=== PATIENT | male | born 1960 | race African-American/Black ===

== ENCOUNTER 2016-09-15 21:44 | Inpatient (IN) ==
--- NOTE | 2016-09-15 21:55 | Emergency Department Note ---
Disposition Clinical Impression: Hyperglycemia, HARISH (acute kidney injury), Acute electrocardiogram changes Disposition: Admitted As Inpatient Condition: Fair Time of Disposition: 23:57 General Adult HPI - General Chief complaint: ED General Medical Stated complaint: High Blood Sugar Time Seen by Provider: 09/15/16 21:50 Source: patient, EMS Mode of arrival: EMS Limitations: no limitations Nursing Notes Reviewed: Yes Vital Signs Reviewed: Yes - History of Present Illness HPI Narrative: 55-year-old male with history of diabetes, hypertension, presents from the [facility] urgent care, Dr. Armijo the patient due to concerns for ischemic changes in his EKG including inverted T waves and ST depressions in his lateral and inferior leads, his O history of CAD, patient denies any chest pain abdominal pain or back pain, he does state that he had high blood sugars at home with his meter reading "high" is found to be in the 400s at the [facility], and they gave him 5 units of regular insulin prior to transport. His initial troponin was 0.21, with upper limit of normal at the [facility] greater than 0.04, again still denies chest pain, no previous or recent heart evaluations, no previous surgeries, denies nausea vomiting diaphoresis, shortness of breath, dysuria hematuria. States he has been poorly controlled with his blood sugar in the past. Improves with: nothing Worsens with: nothing Treatments Prior to Arrival: none (Insulin 5Units) - Related Data Allergies Allergy/AdvReac Type Severity Reaction Status Date / Time lisinopril Allergy Anaphylaxis Verified 09/15/16 22:01 aspirin AdvReac Difficulty Verified 09/15/16 22:01 Breathing All systems ED: reviewed and negative except as stated. Constitutional: Denies: fever, chills Cardiovascular: Denies: chest pain, palpitations Respiratory: Denies: cough, dyspnea Gastrointestinal: Reports: nausea. Denies: abdominal pain, vomiting Genitourinary: Denies: urgency, dysuria Musculoskeletal: Denies: back pain Integumentary: Denies: rash, abrasion Neurological: Denies: headache, weakness Psychiatric: Denies: anxiety Past Medical History - Past Medical History Attestation: Yes The following information was validated with the patient. Source: patient Medical history: Reports: diabetes Physical Exam - General Limitations: no limitations General appearance: alert, in no apparent distress - Head Head exam: atraumatic - Eye Eye exam: Present: normal appearance, PERRL - ENT ENT exam: normal exam, normal oropharynx - Neck Neck exam: Present: normal inspection, full ROM - Chest Chest inspection: Present: normal inspection, symmetric chest wall rise. Absent : tenderness - Respiratory Respiratory exam: Present: normal lung sounds bilaterally. Absent: respiratory distress - Cardiovascular Cardiovascular exam: Present: regular rate, normal rhythm - Abdominal Exam Abdominal exam: Present: soft, Non-Tender. Absent: tenderness, distention - Extremities Exam Extremities exam: Present: normal inspection, full ROM - Back Exam Back exam: Present: normal inspection, full ROM - Neurological Exam Neurological exam: Present: alert, oriented X3, CN II-XII intact, normal gait - Psychiatric Psychiatric exam: Present: normal affect, normal mood Course Course Narrative: 55-year-old male with diabetes of her glycemia and EKG changes, sent from the [facility] urgent care due to concerns for silent FL given EKG changes, patient has evidence of T-wave inversions in inferior leads [address] depressions in V5 V6 on repeat EKG today at 2148, his ST depressions in V5 and V6 lateral leads is improved from nonelevated, patient admitted to the hospitalist service - Reevaluation(s) Reevaluation #1: VBG, beta hydroxybutyric acid is within normal limits, urinalysis shows glucose and urine, no evidence of DKA, repeat EKG unremarkable, somewhat improved from previous EKG saws no ischemic discomfort no chest pain, plan admit to medicine service for trending troponins Dr. Foster accept Time: 23:56 Vital Signs Temperature 97.1 F L 09/15/16 21:52 Pulse Rate 65 09/15/16 21:52 Respiratory Rate 16 09/15/16 21:52 Blood Pressure 142/104 09/15/16 21:52 O2 Sat by Pulse Oximetry 91 09/15/16 21:52 Temperature 97.1 F L 09/15/16 21:52 Pulse Rate 75 09/16/16 00:14 Respiratory Rate 18 09/16/16 00:14 Blood Pressure 162/108 09/16/16 00:14 O2 Sat by Pulse Oximetry 96 09/16/16 00:14 Oxygen Delivery Oxygen Delivery Room Air Medical Decision Making - Medical Records Medical records reviewed: Yes I reviewed the patient's medical records. - Lab Data Lab results reviewed: Yes I reviewed the patient's lab results. Lab results narrative: [facility], white blood cell count 16.3 hemoglobin 17.5 sodium 134 potassium 4.7 chloride 97 CO2 26 glucose 446 BUN 36 Trop 0.021 creatinine 1.62 Result diagrams: 09/15/16 22:02 Lab Results 09/15/16 09/15/16 09/15/16 Range/Units 21:54 22:02 22:02 VBG pH 7.45 H (7.32-7.42) pH Units VBG pCO2 42 (41-51) mmHg VBG pO2 59 H (25-40) mmHg VBG HCO3 29.2 H (21-27) mEq/L Sodium 135 L (136-145) mEq/L Potassium 4.9 H (3.5-4.5) mEq/L Chloride 99 (98-109) mEq/L Carbon Dioxide 26 (19-29) mEq/L BUN 36 H (8-26) mg/dL Creatinine 1.60 H (0.72-1.25) mg/dL Est GFR ( Amer) 54 L (> 60) Est GFR (Non-Af Amer) 45 L (> 60) BUN/Creatinine Ratio 23 (6-26) Glucose 417 H (70-99) mg/dL POC Glucose 350 H (58-89) Calculated Osmolality 306 H (280-300) Calcium 10.5 (8.6-10.8) mg/dL Beta-Hydroxybutyric Acd (0.02-0.27) mmol/L Urine Color (Yellow) Urine Clarity (Clear) Urine pH (5.0-8.0) pH Units Ur Specific Hope (1.010-1.025) Urine Protein (Neg-Trace) mg/dL Urine Glucose (UA) (Normal) mg/dL Urine Ketones (Negative) mg/dL Urine Blood (Negative) Urine Nitrite (Negative) Urine Bilirubin (Negative) Urine Urobilinogen (Normal) mg/dL Ur Leukocyte Esterase (Negative) Ur Culture Indicated? (NO) 09/15/16 09/15/16 09/15/16 Range/Units 22:02 23:02 23:35 VBG pH (7.32-7.42) pH Units VBG pCO2 (41-51) mmHg VBG pO2 (25-40) mmHg VBG HCO3 (21-27) mEq/L Sodium (136-145) mEq/L Potassium (3.5-4.5) mEq/L Chloride (98-109) mEq/L Carbon Dioxide (19-29) mEq/L BUN (8-26) mg/dL Creatinine (0.72-1.25) mg/dL Est GFR ( Amer) (> 60) Est GFR (Non-Af Amer) (> 60) BUN/Creatinine Ratio (6-26) Glucose (70-99) mg/dL POC Glucose 341 H (58-89) Calculated Osmolality (280-300) Calcium (8.6-10.8) mg/dL Beta-Hydroxybutyric Acd 0.27 (0.02-0.27) mmol/L Urine Color Yellow (Yellow) Urine Clarity Clear (Clear) Urine pH 6.0 (5.0-8.0) pH Units Ur Specific Hope > 1.030 H (1.010-1.025) Urine Protein Negative (Neg-Trace) mg/dL Urine Glucose (UA) >=1000 H (Normal) mg/dL Urine Ketones Negative (Negative) mg/dL Urine Blood Negative (Negative) Urine Nitrite Negative (Negative) Urine Bilirubin Negative (Negative) Urine Urobilinogen Normal (Normal) mg/dL Ur Leukocyte Esterase Negative (Negative) Ur Culture Indicated? NO (NO) Attestation Statement - Attestation Attestation: I, Gordon Pagan MD, personally evaluated this patient and discussed their management with the resident physician. I reviewed the resident's note and agree with the documented findings, medical decision making, and plan of care. 55-year-old male with history of diabetes transferred here from the local [facility] for further evaluation. Patient presented there complaining of elevated blood sugars. He was in the hospital at the [facility] last week for the same problem. On evaluation he was found to have some new EKG changes. He denies any chest pain or shortness of breath. On examination patient is a well-developed well-nourished well-appearing male in no acute distress. He is alert and oriented 3. There is no diaphoresis. Breath sounds clear and equal bilaterally. Heart regular rate and rhythm. Abdomen soft and nontender with normal bowel sounds. Labs reviewed. Troponin normal. EKG shows some new inferior and lateral T- wave inversions. The hospitalist, Dr. Foster, was consulted and accepted admission of the patient.
[2016-09-15] MEDS ORDERED: Insulin Human Regular 10 UNIT in 0.9 % Sodium Chloride 10 ML IV ONE (21:56)
[2016-09-15 22:18] LABS: VBG HCO3 29.2 mEq/L (21-27); VBG PH 7.45 pH Units (7.32-7.42)
[2016-09-15 22:30] LABS: Calcium 10.5 mg/dL (8.6-10.8); Potassium 4.9 mEq/L (3.5-4.5)
[2016-09-15 23:09] LABS: Bilirubin,Urine Negative (Negative); Blood,Urine Negative (Negative); Clarity,Urine Clear (Clear); Color,Urine Yellow (Yellow); Glucose,Urine (UA) >=1000 mg/dL (Normal); Ketones,Urine Negative (Negative); Leukocyte Esterase,Urine Negative (Negative); Nitrite,Urine Negative (Negative); Protein,Urine Negative (Neg-Trace); Specific Gravity,Urine > 1.030 (1.010-1.025); Urobilinogen,Urine Normal (Normal)
[2016-09-15] MEDS ORDERED: Insulin Regular, Human 100 UNIT/ML IV ONE (23:53)
[2016-09-16] MEDS ORDERED: Acetaminophen 325 MG TABLET PO PRN (01:01)
[2016-09-16] MEDS ORDERED: Ondansetron 4 MG/2 ML VIAL IVP PRN (01:01)
[2016-09-16] MEDS ORDERED: Naloxone 0.4 MG/ML INJ IVP PRN (01:01)
[2016-09-16 02:17] LABS: Basophils # 0.1 K/mcL (0.0-0.2); Basophils % 0.3 %; Eosinophils % 0.1 %; Hemoglobin 17.6 g/dL (12.9-16.9); Immature Granulocytes % 1.2 % (0-4); Lymphocytes # 3.6 K/mcL (0.6-4.6); Lymphocytes % 16.9 %; Mean Corpuscular HGB Conc 34.5 g/dL (31.6-35.5); Mean Corpuscular Hemoglobin 31.2 pg (28.0-33.3); Mean Corpuscular Volume 90.3 fL (83.0-100.0); Mean Platelet Volume 9.9 fL (9.4-12.4); Monocytes # 1.2 K/mcL (0.0-1.3); Monocytes % 5.5 %; Neutrophils # 16.2 K/mcL (1.6-8.9); Platelet Count 285 K/mcL (140-400); Red Blood Count 5.65 M/mcL (4.19-5.50); Red Cell Distribution Width 13.2 % (11.5-14.5)
[2016-09-16 02:36] LABS: Albumin 3.4 g/dL (3.5-5.0); Albumin/Globulin Ratio 0.8 (1.1-2.2); Bilirubin,Total 0.4 mg/dL (0.2-1.2); Calcium 10.3 mg/dL (8.6-10.8); Globulin 4.3 g/dL (2.4-3.5); Total Protein 7.7 g/dL (6.0-8.3)
[2016-09-16] MEDS ORDERED: *HR* Enoxaparin 100 MG/ML SYRINGE SQ STA (02:37)
[2016-09-16] MEDS ORDERED: Nitroglycerin 0.4 MG TAB.SUBL SL PRN (02:38)
--- NOTE | 2016-09-16 02:49 | Internal Med History&Physical ---
Date of Encounter: 09/16/16 Time of Encounter: 02:47 Assessment and Plan (1) Unstable angina Current visit: Yes Status: Acute Pt. has left arm stiffness and hyperglycemia over the past 2 weeks EKG with significant changes suggestive of inferolateral ischemia Pt. has risk factors of age, HTN, tobacco abuse and diabetes mellitus Benign exam Troponins negative. Admit to inpatient status. High risk due to risk of lethal arrhythmias. Expected to be admitted for at least 2 midnights. Expected DC dispo is home Pt. states he was told by [facility] pharmacist to list ASA & Lisinopril as allergies after he developed angioedema Will hold off on ASA Start plavix, statin Hold BB due to HR in 60s ECHO. Cardiology consult Cycle cardiac markers NTG PRN (2) HARISH (acute kidney injury) Current visit: Yes Status: Acute Check US kidney IV fluids Avoid nephrotoxic meds and hypotension (3) Diabetes mellitus Current visit: Yes Status: Chronic Complicated by hyperglycemia and CKD Will resume home insulin and increase the dose SSI Hold metformin due to HARISH & CKD-3 Hold PO meds Renal function slightly worse Will obtain PTH, phosphorous and Vit. 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 Hooks is a 55 year old male with history of diabetes mellitus type 2 and tobacco abuse who presented to the [place] urgent care due to high blood sugar. Patient states that the problem started 1 week ago when his blood sugar was as high as 1500. At that time, he was admitted to the [facility] for about 4-5 days for high blood sugar. At the time of discharge, he states that his blood sugar was still high in the 200s. At home, he states that he continued to have high blood sugar into the 400s to 500s. 2 nights ago, his blood sugar was 118 and the telemetry nurse called him to present to the emergency department. However , he decided to stay home as it was late in the night. Yesterday, his blood sugar was in the 400s. Hence, he presented to the emergency department. He reports that he had some stiffness in his left arm which she reported to the urgent care. An EKG was obtained which revealed T wave inversions in inferolateral leads and hence he has been transferred to [facility] for possible unstable angina/non-STEMI. He denies any shortness of breath, palpitations, feeling lightheaded or dizzy. He denies any cough, wheezing, fever or chills. He denies any nausea, diaphoresis, vomiting, abdominal pain, diarrhea or constipation. He denies any recent weight changes or changes in his appetite. He denies any swelling in his legs. Past Med Surg Social Fam HX - Past Medical History Attestation: Yes The following information was validated with the patient. Source: patient, old records reviewed Medical history: diabetes, hypertension Psychiatric history: no psych history - Past Surgical History Surgical History: no surgical history - Social History Smoking Status: Current every day smoker Smokeless Tobacco Status: No Alcohol use: none Drug use: none Current living situation: Home Activity Level: Independent ambulation Recent Out of Country Travel Within the Last 8 Weeks: No Exposure or Possible Exposure to Illness During Travel: No - Additional Family History Additional family history: Reviewed; not pertinent Internal Medicine - H&P: Meds Allergies lisinopril Allergy (Verified 09/15/16 22:01) Anaphylaxis aspirin Adverse Reaction (Verified 09/15/16 22:01) Difficulty Breathing All Systems PM: A 10-system review of systems was performed and is negative for pertinent findings except as documented above in the HPI. Review of systems: 10 systems have been reviewed and are negative except as mentioned in the history of present illness - Constitutional Vitals: Temp Pulse Resp BP Pulse Ox 98.4 F 67 20 129/88 91 09/16/16 02:16 09/16/16 02:16 09/16/16 02:16 09/16/16 02:16 09/16/16 02:16 Exam: Gen.: Lying in bed. No acute distress. Eyes: Pupils equal, round and reactive to light. Extraocular muscles intact. ENT: Moist mucous membranes. No oropharyngeal erythema or discharge. Chest: Clear to auscultation bilaterally. No adventitious sounds present. CVS: First and second heart sounds present. No murmurs, rubs or gallops. Abdomen: Soft, nontender, nondistended. Bowel sounds present. No hepatosplenomegaly. Skin: No decubitus ulcers appreciated. MANAGER ANIMAL: No focal neuro deficits present. Psychiatric: Alert, awake and oriented to time, place and person. Lymphatic system: No lymphadenopathy appreciated Internal Med - H&P Results - Labs CBC & Chem 7: 09/16/16 01:56 09/16/16 01:56 Labs: Short CBC 09/16/16 Range/Units 01:56 WBC 21.3 H (4.3-11.1) K/mcL Hgb 17.6 H (12.9-16.9) g/dL Hct 51.0 H (37.5-50.1) % Plt Count 285 (140-400) K/mcL Neutrophils # 16.2 H (1.6-8.9) K/mcL BMP 09/16/16 01:56 Sodium 134 L Potassium 5.0 H Chloride 97 L Carbon Dioxide 23 BUN 36 H Creatinine 1.83 H Glucose 440 H Calcium 10.3 Cardiac Enzymes 09/16/16 Range/Units 01:56 Troponin I 0.02 (0-0.03) ng/mL Liver Function 09/16/16 Range/Units 01:56 Total Bilirubin 0.4 (0.2-1.2) mg/dL AST 14 (5-34) Units/L ALT 34 (0-55) Units/L Alkaline Phosphatase 76 (38-126) Units/L Albumin 3.4 L (3.5-5.0) g/dL - EKG Data -: EKG Interpreted by Myself EKG shows normal: sinus rhythm, ST-T waves (T-inversions in leads II, III, aVF, V5-6) - EKG Data Prior EKG available for review: yes When compared to previous EKG: there are significant changes Interpretation IM: suggestive of ischemia
[2016-09-16] MEDS ORDERED: D5% in Water 1,000 ML IVC PRN (03:04)
[2016-09-16] MEDS ORDERED: Dextrose Gel 15 GM PO PRN ×2 (03:04)
[2016-09-16] MEDS ORDERED: *HR* Dextrose 50 % in Water (Syg) 50 ML SYRINGE IVP PRN (03:04)
[2016-09-16] MEDS ORDERED: Insulin LISPRO 300 UNITS/3 ML VIAL SQ ONE (03:24)
[2016-09-16] MEDS: Insulin LISPRO 300 UNITS/3 ML VIAL SQ SCH ×5 (03:36→21:44)
[2016-09-16] MEDS: 0.9 % Sodium Chloride 1,000 ML IVC SCH ×2 (03:37→20:25)
[2016-09-16] MEDS ORDERED: *HR* Heparin 5,000 UNIT/ML VIAL SQ SCH (08:00)
[2016-09-16 08:15] LABS: Hemoglobin A1C 12.8 %
[2016-09-16] MEDS ORDERED: Insulin DETEMIR 100 UNIT/ML X5UNITS SQ SCH (09:00)
--- NOTE | 2016-09-16 11:12 | Cardiology Consult Note ---
<Alcides Becker - Last Filed: 09/16/16 11:41> Date of Encounter: 09/16/16 Time of Encounter: 09:15 Assessment and Plan (1) Diabetes mellitus Current Visit: Yes Status: Chronic Per Cardiology: A1C noted to be in 12's. Recent admissions for hyperglycemia. Management per primary service. 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 Reports had some lower left arm "stiffness at rest". ECG with flipped T waves, however comparable to previous ECGs. Suspect LVH. Trops negative x 1 at [facility] and negative x 2 here. Echo pending. Patient has been experiencing increased dyspnea on exertion and fatigue. No known history of CAD. Risk factors include diabetes mellitus, hypertension, hyperlipidemia, positive family history, and nicotine abuse. Patient apparently Plavix loaded by primary service-- we'll discontinue Plavix for now. Family discussion with patient and he is agreeable to proceed with exercise nuclear stress test, we'll complete tomorrow since patient had breakfast this morning. Discussed and reviewed with Dr. Ibrahim whom agrees with plan. [facility] medical records reviewed in patient with allergy to lisinopril-- reports was taking for years but eventually developed tongue swelling and was discontinued. No allergy listed to aspirin, however listed on our current medical records. Patient reports taking for years with no known adverse reactions, however reports he has not been taking lately. (3) HARISH (acute kidney injury) Current Visit: Yes Status: Acute Per Cardiology: Patient denies any awareness to CKD. Management per primary service. Avoid nephrotoxics. Would need to monitor closely if would warrant LHC. [facility] medical records reviewed and does appear patient does have renal insufficiency. (4) Tobacco abuse Current Visit: Yes Status: Chronic Per Cardiology: Smokes 1ppd for 40+ years, smoking cessation encouraged. Discussion w patient/family: The assessment and plan as outlined above was discussed with the patient who expressed understanding and agreement. All questions were answered. Thank you for involving us in the care of your patient. Please call with any questions. History of Present Illness Consult date: 09/16/16 Requesting physician: Rolly Borja Consult reason: R/O USA?, Abnormal ECG Chief complaint: High blood sugars History of present illness: Mr. Hooks is a 55 year old male with relevant past medical history of diabetes mellitus type 2, hypertension, hyperlipidemia, nicotine abuse of smoking one pack per day for 40+ years. Denies any known history of CAD and last stress test about 6 years ago. Reports family history with brother with stenting. Cardiology consult for possible unstable angina and ECG changes. Patient reports hospitalized at [facility] for about one week a few days ago for elevated blood sugars in the 1500s. He reports he presented back to the [facility] for elevated blood sugars in the 500s. He denies any chest pain. He reports he developed left arm "stiffness", currently resolved. He does report over the past few months increased dyspnea on exertion and fatigue. He denies any dizziness, syncope, falls. Denies any active bleeding or blood loss. He denies any history of CVA or TIA. He denies any known history of CKD. He denies any recent fever, chills, nausea, vomiting, diarrhea, cough. Past Med Surg Social Fam HX - Past Medical History Attestation: Yes The following information was validated with the patient. Source: patient, old records reviewed Medical history: diabetes, hypertension Psychiatric history: no psych history - Past Surgical History Surgical History: no surgical history - Social History Smoking Status: Current every day smoker Smokeless Tobacco Status: No Alcohol use: none Drug use: none Medications and Allergies Albuterol Sulfate [Albuterol Inhaler] 1 puff IH QID PRN 09/16/16 [History] EPINEPHrine [Epipen] 0.3 ml IM AD 09/16/16 [History] Famotidine [Pepcid] 20 mg PO DAILY 09/16/16 [History] Gabapentin [Neurontin] 300 mg PO TID 09/16/16 [History] Insulin Glargine [Lantus] 32 unit SQ HS 09/16/16 [History] Metformin HCl [Glucophage] 1,000 mg PO BIDWM 09/16/16 [History] Methocarbamol [Robaxin] 500 mg PO TID 09/16/16 [History] Multivitamin [Multivitamins] 1 each PO DAILY 09/16/16 [History] Omeprazole 20 mg PO DAILY 09/16/16 [History] Pravastatin Sodium [Pravachol] 80 mg PO DAILY 09/16/16 [History] Saxagliptin HCl [Onglyza] 5 mg PO DAILY 09/16/16 [History] Tramadol HCl [Ultram] 50 mg PO QID PRN 09/16/16 [History] Triamterene/HCTZ 37.5/25mg [Dyazide] 1 each PO DAILY 09/16/16 [History] glipiZIDE [Glipizide] 15 mg PO BID 09/16/16 [History] hydrALAZINE [HydrALAZINE] 10 mg PO QID 09/16/16 [History] Allergies lisinopril Allergy (Verified 09/16/16 09:51) Anaphylaxis PATIENT STATES THIS CAUSES SWELLING. aspirin Adverse Reaction (Verified 09/16/16 09:41) SEE COMMENT PATIENT SAYS DR SAID NOT TO TAKE ASPIRIN FOR RIGHT NOW BECAUSE IT COULD BE A FACTOR CONTRIBUTING TO HIS SWELLING. All Systems Review: A 10-system review of systems was performed and is negative for pertinent findings except as documented above in the HPI. - Constitutional Constitutional: fatigue - Cardiovascular Cardiovascular: as per HPI, dyspnea on exertion - Musculoskeletal Musculoskeletal: other (L arm stiffness) Physical Examination Vital Signs, Last 4 Hours Temp Pulse Resp BP Pulse Ox 09/16/16 08:03 98.0 F 55 14 120/83 98 General: Conversant, No Apparent Distress HEENT: Atraumatic, Normocephaly, Mucus Membranes Moist Neck: No JVD, Normal carotid pulses Cardiac: Reg Rate and Rhythm, Normal S1 and S2, No Murmur Lungs: Normal Breath Sounds, No Wheeze, Rales, Rhonchi Neuro: Alert and responsive, No focal deficits noted Abdomen: Soft, Non-Tender Skin: No rashes noted on visualized skin Musculoskeletal: No Chest Wall Tenderness Extremities: No Clubbing, No Cyanosis, No Edema, Normal Pulses Results 09/16/16 01:56 09/16/16 01:56 Lab Results Laboratory Tests 09/15/16 09/16/16 09/16/16 22:02 01:56 01:56 WBC 21.3 H Creatinine 1.60 H Est GFR (Non-Af Amer) 45 L Hemoglobin A1c AST ALT Troponin I 0.02 09/16/16 09/16/16 09/16/16 01:56 07:03 07:03 WBC Creatinine 1.83 H Est GFR (Non-Af Amer) 38 L Hemoglobin A1c 12.8 H AST 14 ALT 34 Troponin I 0.01 Active Medications Acetaminophen (Tylenol) 650 mg PO Q6HR PRN PRN Reason: Mild Pain (1-3) Stop: 03/18/17 01:02 Atorvastatin Calcium (Lipitor) 80 mg PO HS [facility] Stop: 03/18/17 02:46 Last Admin: 09/16/16 03:29 Dose: 80 mg Dextrose/Water (Dextrose 50% (Syg)) 25 ml IVP AD PRN PRN Reason: Hypoglycemia Stop: 03/18/17 03:05 Glucagon (Glucagen) 1 mg IM ONCE PRN PRN Reason: Hypoglycemia Stop: 03/18/17 03:05 Glucose (Gluctose) 15 gm PO ONCE PRN PRN Reason: Hypoglycemia Stop: 03/18/17 03:05 Glucose (Gluctose) 30 gm PO ONCE PRN PRN Reason: Hypoglycemia Stop: 03/18/17 03:05 Sodium Chloride (0.9 % Sodium Chloride) 1,000 mls @ 80 mls/hr IVC .[id number] [facility] Stop: 03/18/17 03:01 Last Admin: 09/16/16 03:37 Dose: 80 mls/hr Dextrose (Dextrose 5%) 1,000 mls @ 100 mls/hr IVC .Q10H PRN PRN Reason: HYPOGLYCEMIA Stop: 03/18/17 03:05 Insulin Detemir (Levemir) 22 unit 0.25 unit/kg (22 unit) SQ BID [facility] Stop: 03/18/17 09:01 Last Admin: 09/16/16 08:56 Dose: 22 unit Insulin Human Lispro (Humalog) 0 units SQ HS [facility] PRN Reason: Protocol Stop: 03/18/17 21:01 Last Admin: 09/16/16 03:36 Dose: 9 units Insulin Human Lispro (Humalog) 0 units SQ TIDAC [facility] PRN Reason: Protocol Stop: 03/18/17 07:31 Last Admin: 09/16/16 08:55 Dose: 12 units Naloxone HCl (Narcan) 0.4 mg IVP Q2MIN PRN PRN Reason: Opioid Reversal Stop: 03/18/17 01:02 Nitroglycerin (Nitroglycerin) 0.4 mg SL Q5MIN PRN PRN Reason: Chest Pain Stop: 03/18/17 02:39 Ondansetron HCl (Zofran) 4 mg IVP Q8HR PRN PRN Reason: Nausea And Vomiting Stop: 03/18/17 01:02 - Imaging and Cardiology Stress Test: pending Echo: pending - EKG Interpretation EKG results cardiology: personally reviewed (flipped T waves, comparable to previous baseline ECGs), normal ECG, sinus rhythm Consult Discharge Plan - Plan [facility]errals: [facility]Primary Care Provider[facility] - <Emily Ibrahim - Last Filed: 09/16/16 13:16> Date of Encounter: 09/16/16 Assessment and Plan Discussion w patient/family: The assessment and plan as outlined above was discussed with the patient and/or family members who expressed understanding and agreement. All questions were answered. Thank you for involving us in the care of your patient. Please call with any questions. History of Present Illness History of present illness: Mr. Hooks is a 55 year old male All Systems Review: A 10-system review of systems was performed and is negative for pertinent findings except as documented above in the HPI. Physical Examination Vital Signs, Last 4 Hours Temp Pulse Resp BP Pulse Ox 09/16/16 12:34 98.8 F 63 16 138/82 97 Results 09/16/16 01:56 09/16/16 01:56 Lab Results 09/16/16 09/16/16 09/16/16 01:56 01:56 01:56 WBC 21.3 H Hgb 17.6 H Hct 51.0 H Plt Count 285 Sodium 134 L Potassium 5.0 H Chloride 97 L Carbon Dioxide 23 BUN 36 H Creatinine 1.83 H Glucose 440 H Calcium 10.3 Total Bilirubin 0.4 AST 14 ALT 34 Alkaline Phosphatase 76 Troponin I 0.02 09/16/16 07:03 WBC Hgb Hct Plt Count Sodium Potassium Chloride Carbon Dioxide BUN Creatinine Glucose Calcium Total Bilirubin AST ALT Alkaline Phosphatase Troponin I 0.01 - Attending Attestation I examined this patient and my medical decision-making was reviewed with the SECURITY CLERK/PA/Advanced Practice Nurse/Resident Physician. I agree with the documented findings, disposition and treatment plan. Mr. Hooks presents with ECG abnormalities which are comparable to prior ECGs. Troponins have been negative and patient denies chest pain, admits to arm stiffness. He has CV risk factors and has agreed to undergoing ischemic evaluation with stress testing. Received plavix load - agree with discontinuing. ASA allergy listed but patient reports taking it for a long time without adverse events, although not recently. Further recommendations in this regard following results of stress testing. Smoking cessation encouraged.
--- NOTE | 2016-09-16 15:37 | Electrocardiograph Report ---
[place] [id number] Test Date: 2016-09-15 Pat Name: Yvan Hooks Department: 105 Room: 2A71 Gender: M School Age Program Associate: VERÓNICA : 1960 Requested By: Miguel Dobbs Order Number: [id number] Reading MD: Khloe Barrera Measurements Intervals [place] Rate: 58 P: 53 AL: 160 QRS: -17 QRSD: 106 T: -53 QT: 388 QTc: 385 Interpretive Statements SINUS BRADYCARDIA VOLTAGE CRITERIA FOR LVH [MEETS CRITERIA IN ONE OF: R(aVL), S(V1), R(V5), R(V5/V6) +S(V1)] MODERATE T-WAVE ABNORMALITY, CONSIDER INFERIOR ISCHEMIA [-0.1+ mV T WAVE IN II/aVF] Electronically Signed On 09-16-2016 15:36:14 EDT by Khloe Barrera
[2016-09-16] MEDS: Insulin DETEMIR 100 UNIT/ML X5UNITS SQ SCH (21:43)
[2016-09-16] MEDS ORDERED: Simethicone 80 MG TAB.CHEW PO ONE (21:49)
--- NOTE | 2016-09-17 07:56 | Cardiology Progress Note ---
Date of Encounter: 09/17/16 Time of Encounter: 07:55 Assessment and Plan (1) Diabetes mellitus Current Visit: Yes Status: Chronic Per Cardiology: A1C noted to be in 12's. Recent admissions for hyperglycemia. Management per primary service. 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 Reports had some lower left arm "stiffness at rest". ECG with flipped T waves, however comparable to previous ECGs. Suspect LVH. Trops negative x 1 at [place] and negative x 3 here. Echo showed EF preserved 60%, mild diastolic dysfunction, normal RV function, NSWMA, no pulmonary hypertension, no significant valvular dysfunction. Patient has been experiencing increased dyspnea on exertion and fatigue. No known history of CAD. Risk factors include diabetes mellitus, hypertension, hyperlipidemia, positive family history, and nicotine abuse. Stress test results pending. On statin. [place] medical records reviewed in patient with allergy to lisinopril-- reports was taking for years but eventually developed tongue swelling and was discontinued. No allergy listed to aspirin, however listed on our current medical records. Patient reports taking for years with no known adverse reactions, however reports he has not been taking lately. (3) HARISH (acute kidney injury) Current Visit: Yes Status: Acute Per Cardiology: Patient denies any awareness to CKD. Management per primary service. Avoid nephrotoxics. Would need to monitor closely if would warrant LHC. [place] medical records reviewed and does appear patient does have renal insufficiency. Renal ultrasound showed no hydronephrosis. (4) Tobacco abuse Current Visit: Yes Status: Chronic Per Cardiology: Smokes 1ppd for 40+ years, smoking cessation encouraged. (5) Abdominal pain in male Current Visit: Yes Status: Acute Per Cardiology: Complaint of acute right abdominal pain this morning. Further management per primary service. Consider abdominal CT if clinically warranted. Discussion w patient/family: The assessment and plan as outlined above was discussed with the patient who expressed understanding and agreement. All questions were answered. Thank you for involving us in the care of your patient. Please call with any questions. Subjective Principal diagnosis: ANTONIO Interval history: Patient seen today during stress test. Denies any chest pain, shortness of breath, palpitations. Reports right upper and lower quadrant abdominal pain and cramping. Reports positive bowel movement yesterday and today. Denies any diarrhea. Symptoms worsened with low level Lexiscan stress test. She had no chest pain or arrhythmias or significant ECG changes during stress test. Objective Vital Signs, Last 4 Hours Temp Pulse Resp BP Pulse Ox 09/17/16 07:03 97.1 F L 47 16 142/88 95 General: Conversant Cardiac: Reg Rate and Rhythm, Normal S1 and S2, No Murmur Lungs: Normal Breath Sounds, No Wheeze, Rales, Rhonchi Neuro: Alert and responsive, No focal deficits noted Abdomen: Other (Right upper and lower abdominal tenderness and discomfort) Extremities: No Edema Results 09/16/16 01:56 09/16/16 01:56 Lab Results Laboratory Tests 09/16/16 09/16/16 09/16/16 01:56 07:03 13:45 Troponin I 0.02 0.01 0.01 Impressions Retroperitoneum Ultrasound 09/16/16 16:00 IMPRESSION: No hydronephrosis noted Focal hypoechoic area in midportion of left kidney, incompletely characterized. Parapelvic cyst is favored. However, as it is not clearly a simple cyst, consider cross-sectional imaging when the patient is able D/ / Jean Lei MD / Jean Lei MD Interpreting Provider: Jean Lei MD Active Medications Acetaminophen (Tylenol) 650 mg PO Q6HR PRN PRN Reason: Mild Pain (1-3) Stop: 03/18/17 01:02 Atorvastatin Calcium (Lipitor) 80 mg PO HS [facility] Stop: 03/18/17 02:46 Last Admin: 09/16/16 20:25 Dose: 80 mg Dextrose/Water (Dextrose 50% (Syg)) 25 ml IVP AD PRN PRN Reason: Hypoglycemia Stop: 03/18/17 03:05 Glucagon (Glucagen) 1 mg IM ONCE PRN PRN Reason: Hypoglycemia Stop: 03/18/17 03:05 Glucose (Gluctose) 15 gm PO ONCE PRN PRN Reason: Hypoglycemia Stop: 03/18/17 03:05 Glucose (Gluctose) 30 gm PO ONCE PRN PRN Reason: Hypoglycemia Stop: 03/18/17 03:05 Sodium Chloride (0.9 % Sodium Chloride) 1,000 mls @ 80 mls/hr IVC .[id number] [facility] Stop: 03/18/17 03:01 Last Admin: 09/16/16 20:25 Dose: 80 mls/hr Dextrose (Dextrose 5%) 1,000 mls @ 100 mls/hr IVC .Q10H PRN PRN Reason: HYPOGLYCEMIA Stop: 03/18/17 03:05 Insulin Detemir (Levemir) 30 unit SQ BID [facility] Stop: 03/18/17 21:01 Last Admin: 09/16/16 21:43 Dose: 30 unit Insulin Human Lispro (Humalog) 0 units SQ HS [facility] PRN Reason: Protocol Stop: 03/18/17 21:01 Last Admin: 09/16/16 21:44 Dose: 8 units Insulin Human Lispro (Humalog) 0 units SQ TIDAC [facility] PRN Reason: Protocol Stop: 03/18/17 07:31 Last Admin: 09/16/16 17:45 Dose: 14 units Naloxone HCl (Narcan) 0.4 mg IVP Q2MIN PRN PRN Reason: Opioid Reversal Stop: 03/18/17 01:02 Nitroglycerin (Nitroglycerin) 0.4 mg SL Q5MIN PRN PRN Reason: Chest Pain Stop: 03/18/17 02:39 Ondansetron HCl (Zofran) 4 mg IVP Q8HR PRN PRN Reason: Nausea And Vomiting Stop: 03/18/17 01:02 - Imaging and Cardiology Stress Test: pending Echo: report reviewed - EKG Interpretation EKG results cardiology: other (Sinus bradycardia on telemetry with flipped T waves) Consult Discharge Plan - Plan [facility]errals: [facility] [Primary Care Provider] -
[2016-09-17] MEDS ORDERED: Regadenoson 0.4 MG/5 ML SYRINGE IVP ONE (08:25)
[2016-09-17] MEDS: Insulin DETEMIR 100 UNIT/ML X5UNITS SQ SCH (10:36)
--- NOTE | 2016-09-17 11:06 | Nuclear Medicine Stress Report ---
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 Gated EF = 65%. History: Hypertension Diabetes Hypercholesteremia History of Smoking Stress Test Summary: Stress Test Type: Low level pharmacologic Regadenoson 0.4mg/5ml given IV Baseline Information: Initial Heart Rate: 52 Blood Pressure: 118/62 Stress Information: Stress Time: 3 min 47 sec Test Terminated Due to (primary): As per protocol Maximum Blood Pressure: 98/50 Maximum Heart Rate: 85 Percent Maximum Heart Rate Achieved: 52 Double Product: 8330 METS Reached: 2.1 Symptoms: ABDOMINAL PAIN, No chest symptoms Nuclear Summary: SPECT myocardial perfusion imaging using Tc99m Sestamibi given intravenously was performed at rest and following cardiac stress testing. The resting images were obtained following initial dose of 10.5 mCi. Following stress an additional dose of 35.7 mCi was given at peak exercise or 30 seconds post regadenoson infusion. Medication Given: Time Medication Dose Units Route Findings: Stress Note * Resting ECG demonstrated normal sinus rhythm with nonspecific ST abnormalities. * No appreciable change in low level pharmacologic ECG from baseline. * No arrhythmias were noted during stress. * Patient had no chest pain during stress. Patient complained of abdominal pain. Hemodynamic responses * Blunted blood pressure response to low level exercise. Study Quality * Technically challenging study due to patient motion. Motion correction applied. Gated EF % * Gated EF = 65%. Left Ventricle * The left ventricle is not dilated. TID * No evidence of transient ischemic dilatation. Lung Uptake * There is no evidence of increase lung uptake. NORMALS * Normal wall motion. PERFUSION * There is a medium sized, moderate intensity fixed perfusion defect involving the inferior wall. Wall motion is normal. Findings represent artifact. * Other areas demonstrate normal rest and stress perfusion. Updated by Emily Ibrahim on 09/17/2016 10:58:35 AM electronically signed on 09/17/2016 10:59:38 AM with status of Final
[2016-09-17] MEDS ORDERED: MetroNIDAZOLE 500 MG/100 ML 500 MG/100 ML BAG IVPB SCH (11:07)
--- NOTE | 2016-09-17 11:09 | Internal Med Progress Note ---
Date of Encounter: 09/17/16 Time of Encounter: 11:07 - Assessment and plan (1) Right upper quadrant pain Current Visit: Yes Status: Acute Assessment and plan: Possible cholelithiasis/acute cholecystitis as his white blood cell count was more than 21 yesterday Start Rocephin and Flagyl IV, ordered an ultrasound of the right upper quadrant , consider CT scan of the abdomen Keep nothing by mouth with IV fluids Morphine IV as needed (2) Chest pain Current Visit: Yes Status: Acute Assessment and plan: Cardiology following the case, stress test report pending Negative troponins, Echocardiogram shows an ejection fraction of 60% mild diastolic dysfunction Qualifiers: Chest pain type: other chest pain Qualified Code(s): R07.89 - Other chest pain; R07.8 - Other chest pain (3) Chronic kidney disease, stage III (moderate) Current Visit: Yes Status: Acute (4) Diabetes mellitus Current Visit: Yes Status: Chronic Assessment and plan: Continue insulin sliding scale Levemir 30 units twice a day Qualifiers: Diabetes mellitus type: type 2 Diabetes mellitus complication status: with kidney complications Diabetes mellitus complication detail: with chronic kidney disease Diabetes mellitus intermediate frame tender insulin use: with snf use Chronic kidney disease stage: stage 3 (moderate) Qualified Code(s): E11.22 - Type 2 diabetes mellitus with diabetic chronic kidney disease; N18.3 - Chronic kidney disease, stage 3 (moderate); 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 Has some nausea. He became very upset as he said he already had an ultrasound ( he had an echocardiogram )when I explained the plan to take care of his abdominal pain including an ultrasound of the abdomen. The patient became disrespectful and mentioned that he was not that significant when he came into this hospital. I encouraged him to have these tests done in order to find out the next step in his plan of care - Constitutional Vitals: Temp Pulse Resp BP Pulse Ox 97.1 F L 47 16 142/88 95 09/17/16 07:03 09/17/16 07:03 09/17/16 07:03 09/17/16 07:03 09/17/16 07:03 General appearance: Present: A&O X 3 - Head Head exam: Present: atraumatic, normocephalic - Eye Eye exam: Present: PERRL, conjuntiva pink, sclera anicteric Pupils: Present: PERRL - Neck Neck exam general surgery: Present: supple, trachea midline. Absent: lymphadenopathy - Respiratory Respiratory exam: Present: decreased breath sounds, CTAB. Absent: accessory muscle use, rales, rhonchi, wheezes - Cardiovascular Cardiovascular exam: Present: RRR, +S1, +S2. Absent: diastolic murmur, gallop, rubs, systolic murmur - GI/Abdominal GI/Abdominal exam: Present: distended, normal bowel sounds, soft, tenderness ( Right upper quadrant tenderness, Jesus's sign was positive), no peritoneal signs - Extremities Exam Extremities exam: Present: warm, radial pulses palpable and symetrical. Absent : calf tenderness, cyanotic, pedal edema - Neurological Exam Neurological exam: Present: CN II-XII intact, oriented X3, no focal deficits. Absent: pronater drift, facial droop, speech deficit - Skin Skin exam: Present: dry, intact Internal Medicine: Result - Labs CBC & Chem 7: 09/16/16 01:56 09/16/16 01:56 Labs: Cardiac Enzymes 09/16/16 Range/Units 13:45 Troponin I 0.01 (0-0.03) ng/mL - Impressions Impressions Retroperitoneum Ultrasound 09/16/16 16:00 IMPRESSION: No hydronephrosis noted Focal hypoechoic area in midportion of left kidney, incompletely characterized. Parapelvic cyst is favored. However, as it is not clearly a simple cyst, consider cross-sectional imaging when the patient is able D/ / Jean Lei MD / Jean Lei MD Interpreting Provider: Jean Lie MD Consult Discharge Plan - Plan [facility]errals: [facility] [Primary Care Provider] -
[2016-09-17] MEDS ORDERED: *HR* Morphine 2 MG/ML SYRINGE IVP PRN (11:11)
[2016-09-17 11:27] LABS: Hemoglobin 18.8 g/dL (12.9-16.9); Immature Granulocytes % 1.5 % (0-4); Mean Corpuscular HGB Conc 33.6 g/dL (31.6-35.5); Mean Corpuscular Hemoglobin 30.8 pg (28.0-33.3); Mean Corpuscular Volume 91.6 fL (83.0-100.0); Mean Platelet Volume 9.7 fL (9.4-12.4); Platelet Count 271 K/mcL (140-400); Red Cell Distribution Width 13.2 % (11.5-14.5); Segmented Neutrophils % 50.2 %
[2016-09-17 11:28] LABS: Basophils % 0.3 %; Eosinophils % 0.3 %; Lymphocytes % 43.6 %; Monocytes # 0.5 K/mcL (0.0-1.3); Monocytes % 4.1 %; Neutrophils # 5.7 K/mcL (1.6-8.9)
[2016-09-17 11:39] LABS: Hematocrit 55.9 % (37.5-50.1)
[2016-09-17 11:45] LABS: Alanine Aminotransferase 27 Units/L (0-55); Albumin 3.1 g/dL (3.5-5.0); Albumin/Globulin Ratio 0.9 (1.1-2.2); Alkaline Phosphatase 65 Units/L (38-126); Amylase 174 Units/L (25-125); Aspartate Amino Transferase 15 Units/L (5-34); BUN/Creatinine Ratio 19 (6-26); Blood Urea Nitrogen 24 mg/dL (8-26); Calcium 9.1 mg/dL (8.6-10.8); Carbon Dioxide 29 mEq/L (19-29); Chloride 102 mEq/L (98-109); Globulin 3.5 g/dL (2.4-3.5); Glucose 131 mg/dL (70-99); Lipase 29 Units/L (8-78); Osmolality,Calculated 292 (280-300); Potassium 3.7 mEq/L (3.5-4.5); Sodium 138 mEq/L (136-145); Total Protein 6.6 g/dL (6.0-8.3); eGFR For African Americans > 60 (> 60); eGFR For Non-African Americans 60 (> 60)
[2016-09-17 12:23] VITALS: BP 129/91
[2016-09-17] MEDS: Insulin LISPRO 300 UNITS/3 ML VIAL SQ SCH ×2 (12:24→12:25)
[2016-09-17 12:26] LABS: Prothrombin Time 11.2 Seconds (9.4-12.1)
--- NOTE | 2016-09-17 15:05 | Discharge Summary ---
Date of Encounter: 09/17/16 Time of Encounter: 14:59 - Discharge Diagnosis (1) Chest pain Priority: Primary Status: Acute Qualifiers: Chest pain type: other chest pain Qualified Code(s): R07.89 - Other chest pain; R07.8 - Other chest pain (2) Right upper quadrant pain Priority: Secondary Status: Acute (3) Chronic kidney disease, stage III (moderate) Priority: Secondary Status: Acute (4) Diabetes mellitus Priority: Secondary Status: Chronic Qualifiers: Diabetes mellitus type: type 2 Diabetes mellitus complication status: with kidney complications Diabetes mellitus complication detail: with chronic kidney disease Diabetes mellitus long term care social worker insulin use: with long term care social worker use Chronic kidney disease stage: stage 3 (moderate) Qualified Code(s): E11.22 - Type 2 diabetes mellitus with diabetic chronic kidney disease; N18.3 - Chronic kidney disease, stage 3 (moderate); Z79.4 - group home (current) use of insulin (5) HTN (hypertension) Priority: Secondary Status: Chronic Qualifiers: Hypertension type: essential hypertension Qualified Code(s): I10 - Essential (primary) hypertension - Discharge Medications Prescriptions: Insulin Glargine [Lantus] 30 unit SQ HS 30 Days Insulin LISPRO [HumaLOG] 10 units SQ TIDAC 30 Days Home Medications: Albuterol Sulfate [Albuterol Inhaler] 1 puff IH QID PRN 09/16/16 [History] EPINEPHrine [Epipen] 0.3 ml IM AD 09/16/16 [History] Famotidine [Pepcid] 20 mg PO DAILY 09/16/16 [History] Gabapentin [Neurontin] 300 mg PO TID 09/16/16 [History] Metformin HCl [Glucophage] 1,000 mg PO BIDWM 09/16/16 [History] Methocarbamol [Robaxin] 500 mg PO TID 09/16/16 [History] Multivitamin [Multivitamins] 1 each PO DAILY 09/16/16 [History] Omeprazole 20 mg PO DAILY 09/16/16 [History] Pravastatin Sodium [Pravachol] 80 mg PO DAILY 09/16/16 [History] Saxagliptin HCl [Onglyza] 5 mg PO DAILY 09/16/16 [History] Tramadol HCl [Ultram] 50 mg PO QID PRN 09/16/16 [History] Triamterene/HCTZ 37.5/25mg [Dyazide] 1 each PO DAILY 09/16/16 [History] glipiZIDE [Glipizide] 15 mg PO BID 09/16/16 [History] hydrALAZINE [HydrALAZINE] 10 mg PO QID 09/16/16 [History] Insulin Glargine [Lantus] 30 unit SQ HS 30 Days 09/17/16 [Rx] Insulin LISPRO [HumaLOG] 10 units SQ TIDAC 30 Days 09/17/16 [Rx] Allergies/Adverse Reactions: Allergies lisinopril Allergy (Verified 09/16/16 09:51) Anaphylaxis PATIENT STATES THIS CAUSES SWELLING. aspirin Adverse Reaction (Verified 09/16/16 09:41) SEE COMMENT PATIENT SAYS DR SAID NOT TO TAKE ASPIRIN FOR RIGHT NOW BECAUSE IT COULD BE A FACTOR CONTRIBUTING TO HIS SWELLING. Procedures/tests Complete & Pending: Procedures Performed prior 72 hours Category Date Time Status NM k[place]on perf SPECT multi [NM] Routine Exams 09/17/16 07:00 Taken US retroperitoneal comp [US] Routine Exams 09/16/16 16:00 Completed abdominal ultrasound - limited [US abdomen limited] [US Exams 09/17/16 11:04 Completed ] Stat EV echocardiogram Routine Y 09/16/16 01:02 Completed SP pharm nuclear stress Routine Y 09/17/16 08:00 Completed Date of admission: 09/16/16 00:13 Primary care physician: PCP MARCO ANTONIO Consults: 09/16/16 02:36 Consult to Cardiology [CONS] Routine Comment: Consulting Provider: Cardiology [facility] Reason for Consult: Possible Unstable Angina Call Completed: No - Patient Status Disposition: Home, Self-Care Condition: Good Overall status at discharge: patient is back to baseline - Discharge Instructions [facility] With: [facility] Care Provider[facility] - Additional Instructions: Follow with primary care physician within the next 7 days. Start 30 units of Lantus at night and 10 units of lispro insulin 3 times a day. - Diet and Activity Activity: increase activity as tolerated Diet: diabetic diet Hospital course: Mr. Hooks is a 55 year old male with relevant past medical history of diabetes mellitus type 2 insulin-dependent, hypertension, hyperlipidemia, nicotine abuse of smoking one pack per day for 40+ years. Denied any known history of CAD and last stress test about 6 years ago. Reported family history with brother with stenting. Cardiology consulted for possible unstable angina and ECG with flipped T waves, however comparable to previous ECGs. Suspect LVH. Trops negative x 1 at [place] and negative x 2 here. Echo showed an ejection fraction of 60% asymmetric hypertrophy of the basal septum, mild left ventricular diastolic dysfunction. Patient reported hospitalization at [facility] for about one week a few days ago for elevated blood sugars in the 1500s. He reported he presented back to the [place] for elevated blood sugars in the 500s. He denied any chest pain. He reports he developed left arm "stiffness", currently resolved. He does report over the past few months increased dyspnea on exertion and fatigue. He denies any dizziness, syncope, falls. Stress test did not show any ischemia. Cardiology signed off . Today, the patient complains of severe right upper quadrant tenderness he was started on Rocephin and Flagyl IV as his Jesus sign was positive, also his white blood cell count was 21.3. Both antibiotics were discontinued after a right upper quadrant ultrasound did not show any abnormalities other than small amount of ascites around his liver. The patient denies any right upper quadrant of the moment, repeat lab work shows a white blood cell count of 11.5 and no LFT abnormalities , Amylase was mildly elevated at 174. The patient is requesting to be discharged at the moment. Prior to being admitted he was on Lantus 32 units at night and during his hospitalization he was started on Levemir 30 units twice a day plus insulin sliding scale. The patient is on oral hypoglycemic agents but will require insulin. She will be discharged on Lantus 30 units at night and 10 units of lispro 3 times a day. Time spent discussing smoking cessation with patient: 3 to 10 minutes - Time Spent with Patient Total time spent providing and/or coordinating discharge services: Greater than 30 minutes (40 min) - Constitutional Vitals: Temp Pulse Resp BP Pulse Ox 97.9 F 58 16 129/91 98 09/17/16 12:21 09/17/16 12:21 09/17/16 12:21 09/17/16 12:21 09/17/16 12:21 General appearance: Present: A&O X 3 - Head Head exam: Present: atraumatic, normocephalic - Eye Eye exam: Present: PERRL, conjuntiva pink, sclera anicteric Pupils: Present: PERRL - Neck Neck exam general surgery: Present: supple, trachea midline. Absent: lymphadenopathy - Respiratory Respiratory exam: Present: decreased breath sounds, CTAB. Absent: accessory muscle use, rales, rhonchi, wheezes - Cardiovascular Cardiovascular exam: Present: RRR, +S1, +S2. Absent: diastolic murmur, gallop, rubs, systolic murmur - GI/Abdominal GI/Abdominal exam: Present: distended, normal bowel sounds, soft, no peritoneal signs. Absent: tenderness - Extremities Exam Extremities exam: Present: warm, radial pulses palpable and symetrical. Absent : calf tenderness, cyanotic, pedal edema - Neurological Exam Neurological exam: Present: CN II-XII intact, oriented X3, no focal deficits. Absent: pronater drift, facial droop, speech deficit - Skin Skin exam: Present: dry, intact
== END 2016-09-17 16:00 | disposition home or self-care (01) | DRG 313 ==
LOC: EMEROO 21:44 → 2ANU 09-16 00:13
PROVIDERS: ADMIT Family Medicine; ATTEND Internal Medicine